=== PATIENT | female | born 1990 | race Caucasian/White ===

== ENCOUNTER 2017-06-27 11:26 | Emergency (ER) | payer MEDICAID, OTHER ==
[~2017-06-27] VITALS: Ht 154.9 cm; Wt 81.8 kg
[~2017-06-27 11:26] MED LIST: ROBA750T3 PO; TRAM50 PO
[2017-06-27 12:10] VITALS: BP 145/67; PULSE 82; RESP 18; TEMP 98.5; O2SAT 100
--- NOTE | 2017-06-27 12:41 | PD ---
HPI Chief Complaint: Pain: Acute or Chronic Time Seen by Provider: 12:39 Travel History International Travel<30 days: No Contact w/Intl Traveler<30days: No Traveled to known affect area: No History of Present Illness HPI 27-year-old female presents emergency department with ongoing worsening right knee pain, swelling, and stiffness over the past week. Patient denies any specific injury, but works at [employer] where she has to bend and kneel frequently which seems to aggravate it. Patient states she had difficulty ambulating this morning which was why she came in. Patient has been taking Tylenol without improvement. She is allergic to ibuprofen. Pain is currently 8 out of 10. She denies fever, chills, or other symptoms. Patient states problems with her knee since she was young, but no specific injury history. PFSH Past Medical History Diminished Hearing: No ?: Not LMP: 2 weeks ago : 5 Para: 4 Miscarriage: 1 Past Surgical History Joint Replacement: Yes (RIGHT KNEE ARTHROSCOPIC) Social History Alcohol Use: No Tobacco Use: No Substance Use: No Allergies-Medications (Allergen,Severity, Reaction): Coded Allergies: ibuprofen (Unverified Allergy, Intermediate, 11/03/16) Reported Meds & Prescriptions Reported Meds & Active Scripts Active Prednisone 20 Mg Tab 20 Mg PO BID 5 Days Ultram (Tramadol HCl) 50 Mg Tab 50-100 Mg PO Q6 FOR PAIN Robaxin-750 (Methocarbamol) 750 Mg Tab 750 Mg PO QID FOR PAIN Review of Systems Except as stated in HPI: all other systems reviewed are Neg General / Constitutional: No: Fever Eyes: No: Visual changes HENT: No: Headaches Cardiovascular: No: Chest Pain or Discomfort Respiratory: No: Shortness of Breath Gastrointestinal: No: Abdominal Pain Genitourinary: No: Dysuria Musculoskeletal: Positive: Arthralgias, Limited ROM, Pain Skin: No Rash Neurologic: No: Weakness Psychiatric: No: Depression Endocrine: No: Polydipsia Hematologic/Lymphatic: No: Easy Bruising Physical Exam Narrative GENERAL: Patient appears in mild to moderate distress per SKIN: Warm and dry. Normal color. Normal turgor. No rash. No increased erythema HEAD: Atraumatic. Normocephalic. EYES: Pupils equal and round. No scleral icterus. No injection or drainage. ENT: No nasal bleeding or discharge. Mucous membranes pink and moist. Pharynx is clear. Airways patent NECK: Trachea midline. Supple and nontender per CARDIOVASCULAR: Regular rate and rhythm. RESPIRATORY: No accessory muscle use. Clear to auscultation. Breath sounds equal bilaterally. MUSCULOSKELETAL: Extremities without clubbing, cyanosis, or edema. No obvious deformities. Right knee appears to have no specific signs of effusion. Patient does have increased pain however with motion of the knee, and palpation of the kneecap specifically. No significant crepitus is noted. No increased laxity is noted. NEUROLOGICAL: Awake and alert. No obvious cranial nerve deficits. Motor grossly within normal limits. Five out of 5 muscle strength in the arms and legs. Normal speech. PSYCHIATRIC: Appropriate mood and affect; insight and judgment normal. Data Data Last Documented VS Vital Signs Date Time Temp Pulse Resp B/P (MAP) Pulse Ox O2 Delivery O2 Flow Rate FiO2 06/27/17 12:10 98.5 82 18 145/67 (93) 100 Orders Orders Splint Or Brace Apply/Monitor (06/27/17 12:46) [facility] Medical Decision Making Medical Screen Exam Complete: Yes Emergency Medical Condition: Yes Differential Diagnosis Right knee sprain. Right knee pain. Chondromalacia. Narrative Course Patient is felt to have right sided chondromalacia secondary to overuse at work. Patient is allergic to ibuprofen, so she will be treated with prednisone 20 mg twice daily for 5 days. Patient can take extra strength Tylenol as well. Patient is placed in a Velcro knee splint, which she should wear at all times for the next week. Note for work with restrictions as given 1 week Patient should follow-up with Dr. Hanks, the orthopedic on-call today if symptoms continue or worsen. Diagnosis Primary Impression: Chondromalacia patellae, left knee Referrals: Royer Hanks MD Patient Instructions: General Instructions, Knee Immobilizer (ED), Patellofemoral Pain Syndrome (ED) Departure Forms: Tests/Procedures, Work Release Enter return to work date: Jun 28, 2017 Special Instructions: Patient to wear knee immobilizer on the right leg 1 week. No bending, stooping, or kneeling until that time. Med/Other Pt SpecificInfo: Prescription(s) given Scripts Prednisone (Prednisone) 20 Mg Tab 20 MG PO BID for 5 Days, #10 TAB 0 Refills Prov: Tracey Hightower MD 06/27/17 Disposition: 01 DISCHARGE HOME Condition: Stable Charles Rios Jun 27, 2017 12:41
[2017-06-27] MEDS ORDERED: PRED20 PO (12:45)
== END 2017-06-27 13:06 | disposition home or self-care (01) ==
LOC: NEPK 11:26
DX: M22.42 Chondromalacia patellae, left knee (principal)
CPT/HCPCS: 99283; L1830

== ENCOUNTER 2017-07-24 11:44 | Emergency (ER) | payer OTHER ==
[2017-07-24 12:58] LABS: BACTERIA, URINE OCC /hpf; BILIRUBIN, URINE NEG (NEG); BLOOD, URINE NEG (NEG); COMMENT (UR) CULTURE INDICATED; CULTURE IF INDICATED CULTURE INDICATED; GLUCOSE,URINE NEG (NEG); KETONE, URINE NEG (NEG); MUCUS URINE FEW /lpf (OCC); NITRITE,URINE NEG (NEG); SQUAMOUS EPITHELIAL CELL URINE 14 /hpf (0-5); URINE COLOR YELLOW (YELLW/STRAW); URINE LEUKOCYTE ESTERASE LARGE (NEG)
[2017-07-24] MEDS: NITROFURANTOIN MONOHYD MACROCR 100 MG CAP PO (13:26)
== END 2017-07-24 13:26 | disposition home or self-care (01) ==
LOC: NEPD 11:44
DX: O23.41 Unspecified infection of urinary tract in pregnancy, first trimester (principal); Z3A.00 Weeks of gestation of pregnancy not specified
CPT/HCPCS: 81001; 84703; 87086; 99283

== ENCOUNTER 2017-08-25 10:15 | Emergency (ER) | payer MEDICAID, OTHER ==
[~2017-08-25] VITALS: Ht 154.9 cm; Wt 82.0 kg
[~2017-08-25 10:15] MED LIST changes: +MACR100C2 PO; -ROBA750T3 PO; -TRAM50 PO; +TRICTAB PO
[2017-08-25 10:42] VITALS: BP 116/56; PULSE 87; RESP 15; TEMP 97.9; O2SAT 100
--- NOTE | 2017-08-25 11:02 | PD ---
HPI Chief Complaint: Eye Problems/Injury Time Seen by Provider: 11:01 Travel History International Travel<30 days: No Contact w/Intl Traveler<30days: No Traveled to known affect area: No History of Present Illness HPI 27-year-old female presents the emergency department with pain and swelling to the right upper eyelid for the past 2 days. There has been no significant drainage. No changes in her vision. No fever, chills, or other symptoms. Pain is currently 7 out of 10. It is localized to the right upper eyelid. Patient is notably 12 weeks . She is allergic to ibuprofen. [facility] Past Medical History Diminished Hearing: No : 5 Para: 4 Miscarriage: 1 Past Surgical History Joint Replacement: Yes (RIGHT KNEE ARTHROSCOPIC) Social History Alcohol Use: No Tobacco Use: No Substance Use: No Allergies-Medications (Allergen,Severity, Reaction): Coded Allergies: ibuprofen (Verified Allergy, Intermediate, 08/25/17) Reported Meds & Prescriptions Reported Meds & Active Scripts Active ( Vit-Ferrous Fumarate) 27 Mg Iron-1 Mg Tab 1 Tab PO DAILY Review of Systems Except as stated in HPI: all other systems reviewed are Neg General / Constitutional: No: Fever Eyes: Positive: Redness, Pain, Tearing, No: Diploplia, Blurred Vision, Photophobia, Drainage, Foreign Body Sensation, Blind Spots, Visual changes, Blindness HENT: No: Headaches, Vertigo, Lightheadedness, Sore Throat, Rhinitis, Rhinorrhea, Congestion, Nosebleed, Neck Stiffness, Neck Pain, Dental Difficulties, Earache Cardiovascular: No: Chest Pain or Discomfort Respiratory: No: Shortness of Breath Gastrointestinal: No: Abdominal Pain Genitourinary: No: Dysuria Musculoskeletal: No: Pain Skin: No Rash Neurologic: No: Weakness Psychiatric: No: Depression Endocrine: No: Polydipsia Hematologic/Lymphatic: No: Easy Bruising Physical Exam Narrative GENERAL: Patient appears in mild distress. SKIN: Warm and dry. Normal color. Normal turgor. HEAD: Atraumatic. Normocephalic. EYES: Pupils equal and round. No scleral icterus. No injection or drainage. Right upper eyelid is somewhat erythematous with swelling noted consistent with hordeolum. ENT: No nasal bleeding or discharge. Mucous membranes pink and moist. Pharynx is clear. Airways patent NECK: Trachea midline. Supple and nontender. CARDIOVASCULAR: Regular rate and rhythm. RESPIRATORY: No accessory muscle use. Clear to auscultation. Breath sounds equal bilaterally. MUSCULOSKELETAL: Extremities without clubbing, cyanosis, or edema. No obvious deformities. NEUROLOGICAL: Awake and alert. No obvious cranial nerve deficits. Motor grossly within normal limits. Five out of 5 muscle strength in the arms and legs. Normal speech. PSYCHIATRIC: Appropriate mood and affect; insight and judgment normal. Data Data Last Documented VS Vital Signs Date Time Temp Pulse Resp B/P (MAP) Pulse Ox O2 Delivery O2 Flow Rate FiO2 08/25/17 10:42 97.9 87 15 116/56 (76) 100 MDM Medical Decision Making Medical Screen Exam Complete: Yes Emergency Medical Condition: Yes Differential Diagnosis Right eye pain. Stye. Conjunctivitis. Narrative Course Patient will be treated with neomycin/polymyxin/dexamethasone ophthalmic drops. Patient to follow-up if symptoms do not improve. Patient to use warm compresses to the area as discussed. Work note for today is given. Diagnosis Primary Impression: Hordeolum internum right upper eyelid Patient Instructions: General Celestine Christine (ED) Departure Forms: Work Release Enter return to work date: Aug 26, 2017 Additional Instructions: Patient will be treated with neomycin/polymyxin/dexamethasone ophthalmic drops. Patient to follow-up if symptoms do not improve. Patient to use warm compresses to the area as discussed. Work note for today is given. Med/Other Pt SpecificInfo: Prescription(s) given Disposition: 01 DISCHARGE HOME Condition: Stable Charles Rios Aug 25, 2017 11:02
[2017-08-25] MEDS ORDERED: NEOM0.1S4 RIGHT EYE (11:10)
== END 2017-08-25 11:21 | disposition home or self-care (01) ==
LOC: NEPD 10:15
DX: O26.891 Other specified pregnancy related conditions, first trimester (principal); H00.021 Hordeolum internum right upper eyelid; Z79.899 Other long term (current) drug therapy; Z88.6 Allergy status to analgesic agent; Z3A.12 12 weeks gestation of pregnancy
CPT/HCPCS: 99282

== ENCOUNTER 2018-03-28 04:41 | Inpatient (IN) ==
[2018-03-28] MEDS ORDERED: Oxytocin 30 Units/500ml Premix 30 UNITS/500 ML BAG IV.SIG ONE (04:54)
[2018-03-28] MEDS ORDERED: Sod Chloride 0.9% Inj 1,000 ML IV.CONT PRN (04:54)
[2018-03-28] MEDS ORDERED: fentaNYL Citrate Inj 100 MCG/2 ML Ampul IV.PUSH PRN ×2 (04:54)
[2018-03-28] MEDS ORDERED: Sodium Chlor 0.9% Inj 500 ML IV.SIG PRN (04:54)
[2018-03-28] MEDS ORDERED: Naloxone Inj 0.4 MG/ML Vial IV.PUSH PRN ×2 (04:54→05:58)
[2018-03-28] MEDS ORDERED: Citric Acid/Sodium Citrate Liq 30 ML UDC PO SCH (05:00)
--- NOTE | 2018-03-28 05:09 | P.HPOB ---
History of Present Illness Primary Care Physician: NOT REQUIRED History of Present Illness: 28-year-old female at 38/6 weeks presents to the OB to ED with contractions and leakage of fluid. States that she started having contractions 30 minutes before arrival. States that her water broke in the ambulance. OB/ SALES [employer]OUNT [employer]OCIATE is . Reports gestational diabetes controlled with diet and hx of IUGR. No other complications during this . Dorsals good movement. Denies vaginal bleeding, chest pain, shortness of breath, nausea vomiting. Past medical history: Gestational diabetes controlled with diet Past surgical history: Right knee surgery Meds: Allergies: Ibuprofen, reports swelling of throat. Family history: none Social history: Endorses smoking cigarettes in the beginning of . Denies alcohol and other illicit drug use. - Inpatient Certification I certify that the inpatient services were ordered in accordance with Medicare regulations governing the order. This includes certification that hospital inpatient services are reasonable and necessary and in the case of services not specified as inpatient-only under 42 CFR 419.22(n), that they are appropriately provided as inpatient services in accordance to with the 2-midnight benchmark under 43 CFR 412.3(e) Estimated Total Length of Stay (Days): 3 Plans for Post Hospital Care: Home Review of Systems All other systems reviewed negative except as stated in HPI [facility] - Surgical History Surgical History: Surgical History (Last Updated 11/18/17 @ 19:22 by Terrence Valentine MD) H/O knee surgery - Tobacco History Second Hand Smoke Exposure: Yes Smoking Status: Former smoker - Alcohol History How Often Do You Have a Drink Containing Alcohol: Monthly or less - Substance Use History Substance History: No History of Abuse - Travel History History of Recent Travel: No Medications and Allergies Active Medications: Active Medications Citric Acid/Sodium Citrate (Sodium Citrate/Citric Acid Liq) 30 ml PO [employer] [facility] Stop: 04/01/18 04:59 Fentanyl Citrate (Fentanyl Inj) 50 mcg IV.PUSH Q1H PRN PRN Reason: Pain Scale 3 - 5 Fentanyl Citrate (Fentanyl Inj) 100 mcg IV.PUSH Q1H PRN PRN Reason: PAIN SCALE 6 TO 10 Lactated Ringer's (Lr 1000 Ml Inj) 1,000 mls @ 3,000 mls/hr IV.SIG UNSCH PRN PRN Reason: compromise or epidural Sodium Chloride (Ns Inj) 500 mls @ 1,000 mls/hr IV.SIG UNSCH PRN PRN Reason: SEE LABEL COMMENTS Sodium Chloride (Ns Inj) 1,000 mls @ 100 mls/hr IV.CONT .Q10H PRN PRN Reason: SEE LABEL COMMENTS Oxytocin (Pitocin 30 Units/Ns 500 Ml Premix) 30 units in 500 mls @ 999 mls/hr IV.SIG BOLUS ONE Stop: 03/28/18 05:24 Lactated Ringer's (Lr 1000 Ml Inj) 1,000 mls @ 125 mls/hr IV.CONT .Q8H JONN Lidocaine HCl (Xylocaine 1% Inj) 0.1 ml I-DERMAL PRN PRN PRN Reason: For IV start Stop: 03/31/18 04:53 Lidocaine HCl (Xylocaine 1% Inj) 10 ml INFILTRATN PRN PRN PRN Reason: For episiotomy repair Stop: 03/30/18 04:53 Mineral Oil (Muri-Lube Oil) 10 ml TOPICAL PRN PRN PRN Reason: PRN perineal massage Naloxone HCl (Narcan Inj) 0.1 mg IV.PUSH Q2M PRN PRN Reason: for opiate reversal Ondansetron HCl (Zofran Inj) 4 mg IV.PUSH Q6H PRN PRN Reason: NAUSEA OR VOMITING Allergies Allergy/AdvReac Type Severity Reaction Status Date / Time ibuprofen Allergy Intermediate Swelling Verified 03/13/18 18:14 of Lip/Tongue/Throat Home Medications Medication Instructions Recorded Confirmed Type No Known Home Medications 01/25/18 01/25/18 History Exam Vital signs: Vital Signs 03/28/18 04:46 Temperature 98.4 F Pulse Rate 85 Respiratory Rate 18 Blood Pressure 122/69 Narrative: GENERAL: Well-nourished, well-developed patient. SKIN: Warm and dry. HEAD: Normocephalic and atraumatic. EYES: No scleral icterus. No injection or drainage. ENT: No nasal drainage noted. Mucous membranes pink. Airway patent. NECK: Supple, trachea midline. No JVD. CARDIOVASCULAR: Regular rate and rhythm without murmurs, gallops, or rubs. RESPIRATORY: Breath sounds equal bilaterally. No accessory muscle use. BREASTS: Bilateral exam showed no masses , no retractions, no nipple discharge. ABDOMEN/GI: Abdomen soft, non-tender, bowel sounds present, no rebound, no guarding GENITOURINARY: Cervix: midposition Dilatation: 7-8 Effacement: 90 Station: -1 Presentation: vertex Membranes: SROM Uterine Contractions: q1-3min FHT's: Category: 1 Baseline: 130 Reactive: reactive, pos. acel Variability: moderate Decels: none EXTREMITIES: No cyanosis or edema. BACK: Nontender without obvious deformity. No CVA tenderness. NEUROLOGICAL: Awake and alert. Motor and sensory grossly within normal limits. Five out of 5 muscle strength in all muscle groups. Normal speech. Results - Labs CBC & Chem 7: 03/28/18 04:52 Caprini VTE Risk Assessment Caprini VTE Risk Assessment: No/Low Risk (score <= 1) Caprini Risk Assessment Model: Point Value = 1 Point Value = 2 Point Value = 3 Point Value = 5 Age 41-60 Minor surgery BMI > 25 kg/m2 Swollen legs Varicose veins or History of unexplained or recurrent spontaneous Oral contraceptives or hormone replacement Sepsis (< 1 month) Serious lung disease, including pneumonia (< 1 month) Abnormal pulmonary function Acute myocardial infarction Congestive heart failure (< 1 month) History of inflammatory bowel disease Medical patient at bed rest Age 61-74 Arthroscopic surgery Major open surgery (> 45 min) Laparoscopic surgery (> 45 min) Malignancy Confined to bed (> 72 hours) Immobilizing plaster cast Central venous access Age >= 75 History of VTE Family history of VTE Factor V Leiden Prothrombin [id number] Lupus anticoagulant Anticardiolipin antibodies Elevated serum homocysteine Heparin-induced thrombocytopenia Other congenital or acquired thrombophilia Stroke (< 1 month) Elective arthroplasty Hip, pelvis, or leg fracture Acute spinal cord injury (< 1 month) Prophylaxis Regimen: Total Risk Factor Score Risk Level Prophylaxis Regimen 0-1 Low Early ambulation 2 Moderate Order ONE of the following: *Sequential Compression Device (SCD) *Heparin 5000 units SQ BID 3-4 Higher Order ONE of the following medications: *Heparin 5000 units SQ TID *Enoxaparin/Lovenox 40 mg SQ daily (WT < 150 kg, CrCl > 30 mL/min) *Enoxaparin/Lovenox 30 mg SQ daily (WT < 150 kg, CrCl > 10-29 mL/min) *Enoxaparin/Lovenox 30 mg SQ BID (WT < 150 kg, CrCl > 30 mL/min) AND/OR *Sequential Compression Device (SCD) 5 or more Highest Order ONE of the following medications: *Heparin 5000 units SQ TID (Preferred with Epidurals) *Enoxaparin/Lovenox 40 mg SQ daily (WT < 150 kg, CrCl > 30 mL/min) *Enoxaparin/Lovenox 30 mg SQ daily (WT < 150 kg, CrCl > 10-29 mL/min) *Enoxaparin/Lovenox 30 mg SQ BID (WT < 150 kg, CrCl > 30 mL/min) AND *Sequential Compression Device (SCD) Assessment and Plan - Diagnosis (1) 38 weeks gestation of Code(s): Z3A.38 - 38 weeks gestation of Status: Acute (2) Uterine contractions Status: Acute (3) Leakage of amniotic fluid Code(s): O42.90 - Premature rupture of membranes, unspecified as to length of time between rupture and onset of labor, unspecified weeks of gestation Status : Acute (4) Grand multipara in labor Code(s): O09.40 - Supervision of with grand multiparity, unspecified trimester Status: Acute - Plan 28-year-old female at 38/6 weeks in active labor. -Admit to L & D -Gross rupture of membranes -Cervix: /-1 -GBS unknown -anticipate vaginal delivery -javonw Dr. Michelle
[2018-03-28 05:10] LABS: Baso # (Auto) 0.1 th/mm3 (0.0-0.2); Baso % (Auto) 1.1 % (0.0-2.0); Eos # (Auto) 0.1 th/mm3 (0.0-0.4); Hematocrit 36.4 % (35.0-46.0); Hemoglobin 12.4 gm/dL (11.6-15.3); Lymph # (Auto) 3.4 th/mm3 (1.0-4.8); Mean Corpuscular HGB Conc 34.1 % (32.0-36.0); Mean Corpuscular Hemoglobin 28.9 pg (27.0-34.0); Mean Corpuscular Volume 84.9 fL (80.0-100.0); Mean Platelet Volume 10.3 fL (7.0-11.0); Mono # (Auto) 0.6 th/mm3 (0.0-0.9); Mono % (Auto) 5.7 % (0.0-8.0); Neut # (Auto) 6.7 th/mm3 (1.8-7.7); Neut % (Auto) 61.2 % (16.0-70.0); Platelet Count 243 th/mm3 (150-450); Red Blood Count 4.28 mil/mm3 (4.00-5.30); Red Cell Distribution Width 14.7 % (11.6-17.2); White Blood Count 10.9 th/mm3 (4.0-11.0)
[2018-03-28] MEDS ORDERED: Benzocaine 20% Top Spray 60 ML Can TOPICAL PRN (05:58)
[2018-03-28] MEDS ORDERED: Oxytocin 30 Units/500ml Premix 30 UNITS/500 ML BAG IV.CONT PRN (05:58)
[2018-03-28] MEDS ORDERED: Witch Hazel 50%/Glyderin 12.5% 40 Pad Jar RECTAL PRN (05:58)
[2018-03-28] MEDS ORDERED: Bisacodyl 10 MG Supp RECTAL PRN (05:58)
[2018-03-28] MEDS ORDERED: Zolpidem Tartrate 5 MG Tablet PO PRN (05:58)
--- NOTE | 2018-03-28 06:00 | P.OBDELI ---
Weeks Gestation: 38 (+6 days) Patient Started Active Labor: Yes Active Labor Start Date: 03/28/18 Medical Induction of Labor: No Artificial Rupture of Membrane: No Anesthesia: None Episiotomy: none Vaginal Delivery: Spontaneous Presentation: Occiput anterior Nuchal Cord: None Delayed Cord Clamping (45 sec): Yes Placenta: Spontaneous delivery, Intact, 3 vessel cord Laceration: None Infant: Female Female A Delivery Date: 03/28/18 Infant Delivery Time: 05:50 Weight: 2.885 kg score (1 min): 9 score (5 min): 9
[2018-03-28 07:05] LABS: Hepatitis A IgM Antibody Nonreactive (Nonreactive)
[2018-03-28 07:12] LABS: Hepatitits B Surface Antigen Nonreactive (Nonreactive)
[2018-03-28] MEDS: Senna/Docusate Sodium 8.6/50 MG Tablet PO SCH ×2 (08:33→20:49)
[2018-03-28] MEDS: Acetaminophen 325 MG Tablet PO PRN ×2 (08:33→18:02)
[2018-03-28] MEDS ORDERED: Influenza (Quadrivalent) Vaccine 0.5 ML Syringe IM ONE (14:00)
[2018-03-28] MEDS ORDERED: Diphtheria/Tetanus/Pertussis Vaccine Inj 0.5 ML Syringe IM ONE (16:00)
[2018-03-28] MEDS ORDERED: Measles/Mumps/Rubella Vaccine Inj 0.5 ML Vial SQ ONE (16:00)
[2018-03-28 17:30] VITALS: RESP 18
--- NOTE | 2018-03-29 08:05 | P.PNOB ---
Subjective Post day: 1 Interval history: day # 1. AFVSS overnight. Pain well-controlled with Tylenol. Decreased lochia. Denies dysuria. No breast tenderness. She is feeding the baby via breast without issue. Appetite good. No nausea or vomiting. Passing flatus. No bowel movements. Ambulating well. Denies calf pain, shortness of breath, or cough. Otherwise, she is doing well this morning and has no other complaints. Objective Vital Signs/I&O: Vital Signs 03/28/18 08:25 03/28/18 12:20 03/28/18 19:49 Temperature 98.1 F 98.4 F Pulse Rate 68 75 84 Respiratory Rate 17 18 18 Blood Pressure 94/55 L 103/54 L 102/61 Result Diagrams: 03/28/18 04:52 Objective Remarks: GENERAL: Well-nourished, well-developed patient. Laying down comfortably in bed. CARDIOVASCULAR: Regular rate and rhythm without murmurs, gallops, or rubs. RESPIRATORY: Breath sounds equal bilaterally. No accessory muscle use. ABDOMEN/GI: Abdomen soft, non-tender. Fundus: Firm, non-tender at umbilicus. GENITOURINARY: Light to moderate bleeding. EXTREMITIES: No cyanosis or edema, non-tender, without signs of DVT. Medications and IVs: Active Medications Acetaminophen (Tylenol) 650 mg PO Q4H PRN PRN Reason: PAIN SCALE 1 TO 2 Last Admin: 03/28/18 18:02 Dose: 650 mg Al Hydroxide/Mg Hydroxide (Milk Of Magnesia Liq) 30 ml PO Q12H PRN PRN Reason: Mild Constipation Benzocaine (Americaine 20% Top [place]) 1 spray TOPICAL Q4H PRN PRN Reason: For Perineum Discomfort Bisacodyl (Dulcolax Supp) 10 mg RECTAL DAILY PRN PRN Reason: SEVERE CONSITIPATION Oxytocin (Pitocin 30 Units/Ns 500 Ml Premix) 30 units in 500 mls @ 100 mls/hr IV.CONT UNSCH PRN PRN Reason: Heavy bleeding Lactulose (Lactulose Liq) 30 ml PO DAILY PRN PRN Reason: SEVERE CONSITIPATION Naloxone HCl (Narcan Inj) 0.1 mg IV.PUSH Q2M PRN PRN Reason: for opiate reversal Ondansetron HCl (Zofran Odt) 4 mg PO Q6H PRN PRN Reason: NAUSEA OR VOMITING Senna/Docusate Sodium (Phuong-Colace) 1 tab PO BID [facility] Last Admin: 03/28/18 20:49 Dose: 1 tab Sennosides (Senokot) 17.2 mg PO Q12H PRN PRN Reason: Moderate Constipation Sodium Chloride (Ns Flush) 2 ml IV.FLUSH BID [facility] Last Admin: 03/28/18 09:45 Dose: 2 ml Sodium Chloride (Ns Flush) 2 ml IV.FLUSH PRN PRN PRN Reason: FLUSH AFTER USING IV ACCESS Witch Sandra/Glycerin (Tucks Pads) 1 applicatio RECTAL QID PRN PRN Reason: HEMORRHOIDS Zolpidem Tartrate (Ambien) 5 mg PO HS PRN PRN Reason: SLEEP Assessment and Plan - Diagnosis (1) Vaginal delivery Code(s): O80 - Encounter for full-term uncomplicated delivery Status: Acute - Plan 28-year-old female who is PPD# 1 s/p . -Continue routine care. -Tylenol and Motrin as needed for pain. -Encouraged OOB. Advised pelvic rest for 6 wks. -Will need a f/u appt. within 6 wks. -Contraception: she would like to continue to consider her options. -Anticipate discharge tomorrow dw OB attending, Dr. Acevedo
[2018-03-29] MEDS: Senna/Docusate Sodium 8.6/50 MG Tablet PO SCH ×2 (08:59→23:58)
[2018-03-29 20:22] VITALS: TEMP 98.7
[2018-03-29] MEDS: Acetaminophen 325 MG Tablet PO PRN (23:55)
--- NOTE | 2018-03-30 07:24 | P.PNOB ---
Subjective Post day: 2 Interval history: day # 2. AFVSS overnight. Pain well-controlled with Tylenol. Decreased lochia. Denies dysuria or hematuria. No breast tenderness. She is feeding the baby via breast without issue. Appetite good. No nausea or vomiting. Passing flatus. Has had a bowel movement. Ambulating well. Denies calf pain, shortness of breath, or cough. Otherwise, she is doing well this morning and has no other complaints. Objective Vital Signs/I&O: Vital Signs 03/29/18 08:00 03/29/18 20:00 Temperature 98.3 F 98.7 F Pulse Rate 84 88 Respiratory Rate 18 18 Blood Pressure 102/72 103/58 L Result Diagrams: 03/28/18 04:52 Objective Remarks: GENERAL: Well-nourished, well-developed patient. Laying down comfortably in bed CARDIOVASCULAR: Regular rate and rhythm without murmurs, gallops, or rubs. RESPIRATORY: Breath sounds equal bilaterally. No accessory muscle use. ABDOMEN/GI: Abdomen soft, non-tender. Fundus: Firm, non-tender at umbilicus. GENITOURINARY: Light to moderate bleeding. EXTREMITIES: No cyanosis or edema, non-tender, without signs of DVT. Medications and IVs: Active Medications Acetaminophen (Tylenol) 650 mg PO Q4H PRN PRN Reason: PAIN SCALE 1 TO 2 Last Admin: 03/29/18 23:55 Dose: 650 mg Al Hydroxide/Mg Hydroxide (Milk Of Magnesia Liq) 30 ml PO Q12H PRN PRN Reason: Mild Constipation Benzocaine (Americaine 20% Top [place]) 1 spray TOPICAL Q4H PRN PRN Reason: For Perineum Discomfort Bisacodyl (Dulcolax Supp) 10 mg RECTAL DAILY PRN PRN Reason: SEVERE CONSITIPATION Oxytocin (Pitocin 30 Units/Ns 500 Ml Premix) 30 units in 500 mls @ 100 mls/hr IV.CONT UNSCH PRN PRN Reason: Heavy bleeding Lactulose (Lactulose Liq) 30 ml PO DAILY PRN PRN Reason: SEVERE CONSITIPATION Naloxone HCl (Narcan Inj) 0.1 mg IV.PUSH Q2M PRN PRN Reason: for opiate reversal Ondansetron HCl (Zofran Odt) 4 mg PO Q6H PRN PRN Reason: NAUSEA OR VOMITING Senna/Docusate Sodium (Phuong-Colace) 1 tab PO BID [facility] Last Admin: 03/29/18 23:58 Dose: Not Given Sennosides (Senokot) 17.2 mg PO Q12H PRN PRN Reason: Moderate Constipation Sodium Chloride (Ns Flush) 2 ml IV.FLUSH BID [facility] Last Admin: 03/29/18 23:58 Dose: Not Given Sodium Chloride (Ns Flush) 2 ml IV.FLUSH PRN PRN PRN Reason: FLUSH AFTER USING IV ACCESS Witch Sandra/Glycerin (Tucks Pads) 1 applicatio RECTAL QID PRN PRN Reason: HEMORRHOIDS Zolpidem Tartrate (Ambien) 5 mg PO HS PRN PRN Reason: SLEEP Assessment and Plan - Diagnosis (1) Vaginal delivery Code(s): O80 - Encounter for full-term uncomplicated delivery Status: Acute - Plan 28-year-old female who is PPD# 2 s/p . -Continue routine care. -Tylenol and Motrin as needed for pain. -Encouraged OOB. Advised pelvic rest for 6 wks. -Will need a f/u appt. within 6 wks. -Contraception: she would like to continue to consider her options. -Anticipate discharge today dw OB attending, Dr. Michelle
[2018-03-30] MEDS: Senna/Docusate Sodium 8.6/50 MG Tablet PO SCH (08:22)
[2018-03-30 08:53] VITALS: BP 106/70; PULSE 85
== END 2018-03-30 14:30 | disposition home or self-care (01) | DRG 807 ==
LOC: HOBED 04:41 → H2E 04:55 → H1EA 04:58
PROVIDERS: ADMIT Obstetrics & Gynecology Maternal & Fetal Medicine; ATTEND Obstetrics & Gynecology Maternal & Fetal Medicine
CPT/HCPCS: 59025; 80074; 80307; 82948; 82962; 85025; 86900; 86901; 90658; 90686; 90715; 99285; G0481; G0483; J2590; J3010; J7120; Q2038